=== PATIENT | female | born 1950 ===

== ENCOUNTER 2017-11-12 09:20 | Outpatient (CLI) | payer OTHER ==
[~2017-11-12] VITALS: Ht 152.4 cm; Wt 43.5 kg
== END 2017-11-12 09:40 | disposition home or self-care (01) ==
LOC: OFIC 805 09:20
DX: J31.0 Chronic rhinitis (principal); H93.12 Tinnitus, left ear; H69.82 Other specified disorders of Eustachian tube, left ear

== ENCOUNTER 2017-12-24 10:38 | Outpatient (CLI) | payer OTHER ==
[~2017-12-24] VITALS: Ht 152.4 cm; Wt 43.5 kg
== END 2017-12-24 11:00 | disposition home or self-care (01) ==
LOC: OFIC 805 10:38
DX: J31.0 Chronic rhinitis (principal); H93.12 Tinnitus, left ear; H69.82 Other specified disorders of Eustachian tube, left ear

== ENCOUNTER 2018-03-04 09:39 | Outpatient (CLI) | payer OTHER ==
[~2018-03-04] VITALS: Ht 152.4 cm; Wt 43.5 kg
== END 2018-03-04 10:00 | disposition home or self-care (01) ==
LOC: OFIC 805 09:39
DX: H93.12 Tinnitus, left ear (principal)